=== PATIENT | male | born 1965 | race Caucasian/White ===

== ENCOUNTER 2020-09-05 21:27 | Emergency (ER) | payer MEDICARE, BC ==
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
[2020-09-05] MEDS ORDERED: LORAZEPAM INJ 2 MG/1 ML VIAL IM ONE (22:15)
[2020-09-05 23:28] LABS: APPEARANCE,URINE TURBID; BILIRUBIN,URINE NEGATIVE (NEGATIVE); COLOR,URINE YELLOW; GLUCOSE, URINE NEGATIVE (NEGATIVE); KETONES,URINE TRACE mg/dL (NEGATIVE); LEUKOCYTE ESTERASE,URINE NEGATIVE (NEGATIVE); NITRITE,URINE NEGATIVE (NEGATIVE); PROTEIN,URINE 30 mg/dL (NEGATIVE); URINE SPECIFIC GRAVITY 1.024
[2020-09-05 23:45] LABS: ABSOLUTE BASOPHILS # (AUTO) 0.1 10^3/uL (0.0-0.2); ABSOLUTE EOSINOPHILS # (AUTO) 0.1 10^3/uL (0.0-0.6); ABSOLUTE LYMPHOCYTES (AUTO) 1.7 10^3/uL (0.5-4.7); ABSOLUTE MONOCYTES (AUTO) 0.9 10^3/uL (0.1-1.4); ABSOLUTE NEUT (AUTO) 6.9 10^3/uL (1.7-8.2); BASOPHILS % (AUTO) 0.5 % (0-2); EOSINOPHILS % (AUTO) 0.7 % (0-6); HEMATOCRIT 44.9 % (37.9-51.0); HEMOGLOBIN 15.4 g/dL (13.5-17.0); LYMPHOCYTES % (AUTO) 17.2 % (13-45); MEAN CORPUSCULAR HEMOGLOBIN 29.6 pg (27.0-33.4); MEAN CORPUSCULAR HGB CONC 34.3 g/dL (32.0-36.0); MEAN CORPUSCULAR VOLUME 86 fl (80-97); MONOCYTES % (AUTO) 9.3 % (3-13); PLATELET COUNT 225 10^3/uL (150-450); RED CELL DISTRIBUTION WIDTH 15.1 % (11.5-14.0); SEGMENTED NEUTROPHILS % (AUTO) 72.3 % (42-78); TOTAL CELLS COUNTED % (AUTO) 100 %; WHITE BLOOD COUNT 9.6 10^3/uL (4.0-10.5)
[2020-09-05 23:52] LABS: ACETAMINOPHEN < 10 ug/mL (10-30); ALBUMIN 4.4 g/dL (3.5-5.0); ALCOHOL < 10 mg/dL (NONE DETECTED); ALKALINE PHOSPHATASE 59 U/L (38-126); ANION GAP 7 (5-19); ASPARTATE AMINO TRANSFERASE 39 U/L (17-59); BILIRUBIN,DIRECT 0.2 mg/dL (0.0-0.4); BLOOD UREA NITROGEN 13 mg/dL (7-20); CALCIUM 9.7 mg/dL (8.4-10.2); CARBON DIOXIDE 30 mmol/L (22-30); CHLORIDE 100 mmol/L (98-107); GLUCOSE 119 mg/dL (75-110); SALICYLATE < 1.0 mg/dL (2.0-20.0); TOTAL PROTEIN 7.3 g/dL (6.3-8.2)
[2020-09-06 00:07] LABS: URINE AMPHETAMINES SCREEN NEGATIVE; URINE BARBITURATES SCREEN NEGATIVE; URINE BENZODIAZEPINES SCREEN NEGATIVE; URINE COCAINE SCREEN NEGATIVE; URINE METHADONE SCREEN NEGATIVE; URINE PHENCYCLIDINE SCREEN NEGATIVE
[2020-09-06 00:09] LABS: URINE MARIJUANA (THC) SCREEN UNCONFIRMED POSITIVE
--- NOTE | 2020-09-06 09:09 | EKG REPORT ---
SEVERITY:- ABNORMAL ECG - SINUS RHYTHM VENTRICULAR TRIGEMINY IVCD : Confirmed by: Vitaliy Grande MD 06-Sep-2020 09:09:13
--- NOTE | 2020-09-06 12:19 | ER Document Report ---
Doctor's Note Notes: 09/06/20 12:19 Psychiatric team has requested Covid testing for placement
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
[2020-09-06 14:15] LABS: INTERNATIONAL RATION (INR) 0.98; PROTHROMBIN TIME 13.2 SEC (11.4-15.4)
[2020-09-06 18:45] VITALS: BP 136/74
[2020-09-06] MEDS ORDERED: ATORVASTATIN CALCIUM 40 MG TABLET PO SCH (22:00)
[2020-09-06] MEDS ORDERED: (PENDING PHARMACY ID) (Metoprolol Succinate [Toprol Xl] 100 MG Tab.Er.24h) PO SCH (22:00)
[2020-09-06] MEDS ORDERED: (PENDING PHARMACY ID) (Gabapentin [Neurontin] 800 MG Tablet) PO SCH (22:00)
[2020-09-06] MEDS: GABAPENTIN 400 MG CAPSULE PO SCH (22:11)
[2020-09-06] MEDS: METOPROLOL SUCCINATE 50 MG TAB.SR.24H PO SCH (22:12)
[2020-09-07] MEDS ORDERED: FUROSEMIDE 40 MG TABLET PO SCH (08:00)
[2020-09-07] MEDS: GABAPENTIN 400 MG CAPSULE PO SCH (09:51)
[2020-09-07] MEDS: METOPROLOL SUCCINATE 50 MG TAB.SR.24H PO SCH (09:51)
[2020-09-07] MEDS ORDERED: EPLERENONE 25 MG TABLET PO SCH (10:00)
[2020-09-07] MEDS ORDERED: AMIODARONE HCL 200 MG TABLET PO SCH (10:00)
--- NOTE | 2020-09-07 12:08 | ER Document Report ---
Doctor's Note Notes: 09/07/20 13:13 Patient is resting, offers no concerns or complaints at this time. He denies any suicidal or homicidal ideation. Covid test results are still pending. 09/07/20 19:23 Patient is aware of his transfer to [facility]. He is leaving under the supervision of [facility]. Offers no other concerns or complaints at this time. Cooperative at this time. 09/07/20 19:26 Discharge - Discharge Clinical Impression: Paranoid delusion Condition: Stable Disposition: OTHER
== END 2020-09-07 20:16 | disposition other institution (70) ==
LOC: ER 21:27
DX: F22 Delusional disorders (principal); F41.9 Anxiety disorder, unspecified; R45.850 Homicidal ideations; I44.7 Left bundle-branch block, unspecified; Z79.899 Other long term (current) drug therapy; Z79.01 Long term (current) use of anticoagulants; Z87.891 Personal history of nicotine dependence; Z75.1 Person awaiting admission to adequate facility elsewhere; Z95.0 Presence of cardiac pacemaker; Z88.8 Allergy status to other drugs, medicaments and biological substances; Z20.828 Contact with and (suspected) exposure to other viral communicable diseases
CPT/HCPCS: 93005; 99285; 96372; 36415; 80307 ×4; 85025; 85610; 80053; 81001; 93010; U0003; A9270 ×8; J2060; C9803; 87635; J3490